=== PATIENT | female | born 1985 | race Caucasian/White ===

== ENCOUNTER 2019-05-31 11:28 | Emergency (ER) | payer OTHER ==
[2019-05-31] MEDS ORDERED: Sodium Chloride 0.9% 1,000 ML IV ONE ×2 (11:29→12:40)
[2019-05-31] MEDS ORDERED: Sodium Chloride 0.9% 10 ML Syringe FLUSH PRN (11:31)
[2019-05-31] MEDS ORDERED: Sodium Chloride 0.9% 2.5 ML Syringe FLUSH PRN (11:31)
[2019-05-31] MEDS ORDERED: Ondansetron 4 MG/2 ML SDV IVPUSH ONE (11:35)
[2019-05-31] MEDS ORDERED: Diphtheria,Pertussis(Acell),Tetanus Vaccine 0.5 ML Syringe IM ONE (11:40)
[2019-05-31] MEDS ORDERED: ceFAZolin 2 GM in Premix Bag 1 BAG IV ONE (11:40)
[2019-05-31] MEDS ORDERED: fentaNYL 100 MCG/2 ML SDV IVPUSH ONE (11:47)
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
[2019-05-31] MEDS ORDERED: Propofol 200 MG/20 ML SDV IVPUSH ONE (12:00)
[2019-05-31] MEDS ORDERED: fentaNYL 50 MCG/ML SDV IVPUSH ONE (12:00)
[2019-05-31] MEDS ORDERED: Ketamine 500 mg/10 ML MDV IV ONE (12:00)
[2019-05-31] MEDS ORDERED: Rocuronium 50 MG/5 ML Vial IVPUSH ONE (12:00)
[2019-05-31] MEDS ORDERED: Ketamine 500 mg/10 ML MDV ONE (12:01)
[2019-05-31] MEDS ORDERED: Midazolam 1 MG/ML 2 ML SDV ONE (12:01)
[2019-05-31] MEDS ORDERED: ePHEDrine 50 MG/ML SDV ONE (12:01)
[2019-05-31] MEDS ORDERED: Rocuronium 100 MG/10 ML Syringe ONE (12:01)
[2019-05-31] MEDS ORDERED: Propofol 200 MG/20 ML SDV ONE (12:01)
[2019-05-31 12:20] LABS: BLOOD UREA NITROGEN,BUN 14 mg/dL (7.0-18.0); CARBON DIOXIDE,CO2 19.6 mmol/L (21.0-32.0); CHLORIDE,CL 105 mmol/L (98-107); GLUCOSE RANDOM 222 mg/dL (74-106); LIPASE 320 U/L (73-393); POTASSIUM,K 3.5 mmol/L (3.5-5.1); SODIUM,NA 142 mmol/L (136-145)
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
[2019-05-31] MEDS ORDERED: fentaNYL 100 MCG/2 ML SDV ONE (12:35)
[2019-05-31] MEDS ORDERED: Iopamidol 755 MG/ML 500 ML Multipack Bottle IVPUSH STA (12:35)
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
--- NOTE | 2019-05-31 13:25 | CR ---
INDICATION: Post intubation TECHNIQUE: Chest radiograph 1 view COMPARISON: None FINDINGS: Mediastinum: The mediastinum is normal in appearance. The heart silhouette is normal in size and morphology. The endotracheal tube tip is positioned 11 mm from the stacy. NG tube present with the tip just beyond the GE junction. Lung: Small lung volumes are present with minimal subsegmental bibasilar atelectasis. Small granulomas are present in the lungs bilaterally. No pneumothorax is identified. Bone and Soft tissue: Unremarkable for age. IMPRESSION: 1. NG tube present with the tip just beyond the GE junction. Dictated by Eugenio Sam MD @ 05/31/2019 1:23:29 PM Dictated by: Eugenio Sam MD @ 05/31/2019 13:23:35 (Electronically Signed)
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
== END 2019-05-31 13:22 ==
LOC: MW.ED 11:28
DX: S92.011A Displaced fracture of body of right calcaneus, initial encounter for closed fracture (principal); S52.022A Displaced fracture of olecranon process without intraarticular extension of left ulna, initial encounter for closed fracture; S72.354A Nondisplaced comminuted fracture of shaft of right femur, initial encounter for closed fracture; S32.029A Unspecified fracture of second lumbar vertebra, initial encounter for closed fracture; S36.039A Unspecified laceration of spleen, initial encounter; T68.XXXA Hypothermia, initial encounter; R57.8 Other shock; F17.200 Nicotine dependence, unspecified, uncomplicated; V49.40XA Driver injured in collision with unspecified motor vehicles in traffic accident, initial encounter; Y92.410 Unspecified street and highway as the place of occurrence of the external cause
CPT/HCPCS: 31500; 36430; 70450; 71045; 71260; 72125; 72170; 73090; 73551; 73590; 74177; 80053; 80305; 80320; 81001; 81025; 83690; 85025; 85610; 85730; 86920; 86921; 86922; 90471; 90715; 96361; 96365; 96374; 96375; 99291; 99292; G0390; J0690; J2405; J2704; J3010; J7040; P9016; Q9967; 72128; 72128-26; 72131; 72131-26; G0480; J2250